=== PATIENT | female | born 1995 | race Two or more races ===

== ENCOUNTER 2020-05-07 15:17 | Emergency (ER) | payer OTHER ==
[~2020-05-07] VITALS: Ht 160 cm; Wt 61.5 kg
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
[2020-05-07] MEDS ORDERED: SILVER SULF. CRM 1% , 25GM ONE (15:40)
[2020-05-07 15:43] VITALS: BP 126/63
[2020-05-07] MEDS ORDERED: SILVER SULF. CRM 1% , 25GM TP ONE (16:00)
== END 2020-05-07 16:08 | disposition home or self-care (01) ==
LOC: ED 16:00
DX: T23.102A Burn of first degree of left hand, unspecified site, initial encounter (principal); X50.0XXA Overexertion from strenuous movement or load, initial encounter; Y93.89 Activity, other specified; Y92.410 Unspecified street and highway as the place of occurrence of the external cause; Y99.0 Civilian activity done for income or pay
CPT/HCPCS: 16000; 16020; 99283